=== PATIENT | male | born 1985 | race Caucasian/White ===

== ENCOUNTER 2018-03-13 10:01 | Emergency (ER) | payer SELFPAY ==
[2018-03-13 10:02] VITALS: BP 138/76; PULSE 102; RESP 18; TEMP 36.6; O2SAT 99; BMI 23.3
--- NOTE | 2018-03-13 10:50 | ED.DCSUM_ITS ---
- ER Visit Summary Date of Service: 03/13/18 Chief Complaint: Leg infection History of Present Illness: The patient is a 32 M who presents with pain and redness in both of his legs. He initially noticed some redness to his right foot about 1 week ago. He had noticed some red lines coming up his leg. He took some leftover antibiotics and this seemed to be improving. However over the last 2-3 days he has also developed redness swelling and pain in the left leg extending up to almost the knee. He is not diabetic. He has no systemic symptoms such as fevers nausea or vomiting. He is a former IV drug abuser but denies any use in the last 4 months. Physical Examination: Heart rate 102 vitals otherwise normal Moist mucous membranes Heart regular rhythm Lungs clear Abdomen soft Patient has a small patch of erythema over the lateral right foot there is erythema and soft tissue swelling of the dorsum of the left foot and ankle extending up to several centimeters below the knee he has active full range of motion of the knee ankle and foot without pain this area is hot to the touch he has brisk capillary refill with normal sensation distally, there is no crepitus , this is only minimally tender Test Results: Not indicated Emergency Department Course and Treatment: Patient denies any systemic symptoms he is not febrile. He is otherwise medically healthy. At this time I do not believe laboratory studies are indicated and do believe he is a good candidate for outpatient treatment. However he was given clear instructions of specific signs and symptoms to monitor for and conditions which should prompt return here to the emergency department for reevaluation. He vocalized understanding. He is agreeable to this plan. He was given prescriptions for Keflex and Bactrim and discharged home. Treatment Plan: [] Disposition: Discharge Impression: Bilateral leg cellulitis This note was generated with [employer] dictation software. It may contain incorrect words, spelling, and punctuation that were not noted in review of the chart prior to signing ED Disposition - Plan for ED Patient: Chief Complaint: Cellulitis Referrals: Rebecca Franklin MD [Primary Care Provider] -
--- NOTE | 2018-03-13 10:50 | ED.DEP ---
ED Disposition - Plan for ED Patient: Chief Complaint: Cellulitis Instructions: ED Infec Skin Cellulitis Prescriptions: Cephalexin [Keflex] 500 mg PO Q6 #40 cap Smz/Tmp Ds [Bactrim Ds] 1 tab PO BID #14 tab Referrals: Rebecca Franklin MD [Primary Care Provider] -
== END 2018-03-13 11:39 | disposition home or self-care (01) ==
LOC: ED 11:05
PROVIDERS: Emergency Provider Emergency Medicine
DX: L03.116 Cellulitis of left lower limb (principal); L03.115 Cellulitis of right lower limb; Z72.0 Tobacco use
CPT/HCPCS: 99282

== ENCOUNTER 2019-10-09 03:48 | Emergency (ER) | payer MEDICAID, SELFPAY ==
[2019-10-09 03:49] VITALS: BP 162/102; PULSE 90; RESP 18; TEMP 37; O2SAT 100; BMI 24.4
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
[2019-10-09] MEDS: AMOXICILLIN 500 MG CAPSULE PO (04:00)
[2019-10-09] MEDS: Naproxen 500 MG Tablet PO (04:00)
[2019-10-09 04:09] VITALS: BP 158/91; PULSE 89; RESP 16; O2SAT 96
== END 2019-10-09 04:10 | disposition home or self-care (01) ==
PROVIDERS: Emergency Provider Emergency Medicine
DX: K04.7 Periapical abscess without sinus (principal); F17.200 Nicotine dependence, unspecified, uncomplicated
CPT/HCPCS: 99283

== ENCOUNTER 2022-03-14 19:38 | Emergency (ER) | payer MEDICAID, SELFPAY ==
[2022-03-14 19:39] VITALS: BP 133/86; PULSE 63; RESP 16; TEMP 35.9; O2SAT 100; BMI 25.0
--- NOTE | 2022-03-14 20:32 | ED.RN ---
PT LWBS 2030
== END 2022-03-14 20:30 | disposition left against medical advice (07) ==
LOC: ED 20:32
DX: M54.50 Low back pain, unspecified (principal); Z53.21 Procedure and treatment not carried out due to patient leaving prior to being seen by health care provider

== ENCOUNTER 2022-03-15 13:57 | Emergency (ER) | payer BC, MEDICAID, SELFPAY ==
[2022-03-15 13:57] VITALS: BP 128/88; PULSE 71; RESP 16; TEMP 36.6; O2SAT 99; BMI 25.0
--- NOTE | 2022-03-15 14:17 | EDS_ITS ---
HPI History of Present Illness Chief Complaint: Back Informant: patient Onset/Context/Timing Onset: Days Context: Gradual Onset Injury: lifting, twisting and bending Timing: Intermittent Quality: Sharp Location: Lumbar and Buttock Current Severity: Mild Maximum Severity: Moderate Worsened by: improves with Movement, Bending and Lifting Relieved by: Nothing Associated Symptoms Associated Symptoms: Radiation to Right Leg; Negative for Numbness, Tingling, Radiation to Left Leg, Fever, Abdominal Pain, Dysuria, Unable to Ambulate, Unable to Transfer, Urinary Retention, Urinary Incontinence, Constipation or Fec al Incontinence Narrative Narrative: 36-year-old male no significant past medical or surgical history. Said on Sunday was helping carry and move what that was cut up. He believes he injured his back. In the past he had issue with his sciatic nerve. He has never had any back surgery. He denies any fever. He has had no fall or trauma. No weakness to his legs. No bowel or bladder incontinence or retention. No fever. Prior similar symptoms: Yes Recent Illness/Hospitalization: No PFSH PFSH no medical history Home Medications amoxicillin 500 mg tablet 500 mg PO TID #30 tabs 10/09/19 [Rx Last Taken Unknown] naproxen 500 mg tablet 500 mg PO BID PRN #20 tabs 10/09/19 [Rx Last Taken Unknown] Allergy/AdvReac Type Severity Reaction Status Date / Time No Known Allergies Allergy Verified 03/15/22 13:59 no significant family history no surgical history Social History Smoking Status: Current every day smoker tobacco type: cigarettes ROS ROS ED ROS Narrative Denies any recent illness. Back pain. Review of Systems ROS Unobtainable: Denies due to encephalopathy Constitutional Constitutional ED: Denies chills Eyes Eyes: Denies blurry vision ENT ENT ED: Denies ear pain Cardiovascular Cardiovascular: Denies chest pain Respiratory/Chest Respiratory/Chest: Denies dyspnea Gastrointestinal Gastrointestinal: Denies abdominal pain Genitourinary Genitourinary ED: Denies dysuria Musculoskeletal Musculoskeletal: Reports back pain; Denies arthralgias Integumentary Denies abscess Neurologic Neurologic: Denies headache(s) Psychiatric Psychiatric: Denies anxiety Endocrine Endocrinology: Denies cold intolerance Hematologic/Lymphatic Hematologic/Lymphatic: Denies easy bleeding Allergic/Immunologic Allergic/Immunologic ED: Denies mouth swelling EXAM Physical Exam Narrative Exam Narrative: Similar male no distress vital signs stable afebrile. H EENT exam unremarkable. Neck nontender no lymphadenopathy. Lungs clear to auscultation bilaterally. Heart regular rhythm no murmur. Chest nontender. Abdomen soft nontender. Back cervical, thoracic lumbar spine completely nontender. SI joints are nontender. His right lower back musculature is tender to palpation consistent with muscle strain. There is no deficit. No bruising. He has normal motor strength both upper and lower extremities. No cauda equina. No saddle esthesia. He is able to raise up on his toes. Neurologic exam is normal. Const Vital Signs: 03/15/22 13:57 Temperature 97.8 F Temperature Source Temporal Pulse Rate 71 Respiratory Rate 16 Blood Pressure 128/88 H Blood Pressure Mean 101 Pulse Ox 99 Oxygen Delivery Method Room Air Positive well nourished and well developed; Negative for obese, cachectic, contractures or unkempt General Appearance ED: well developed; Negative for unkempt, cachectic or contractures Nutritional Appearance: Negative for cachectic or obese HEENT Reports moist mucous membranes; Denies dry mucous membranes Negative for trauma Mouth ED: No dry mucous membranes Mouth: No dry mucous membranes Eyes PERRL and EOMs intact bilaterally General Eye ED: Yes pale conjunctiva and scleral icterus Neck no lymphadenopathy, supple and no JVD General: Negative for tenderness Thyroid: Negative for other Resp normal respiratory effort and clear to auscultation bilaterally Effort and Inspection: Negative for pain with movement Auscultation: Negative for rales or rhonchi Percussion: Negative for other Cardio regular rate, regular rhythm, S1 normal heart sound, S2 normal heart sound and no murmurs Palpation: Negative for palpable S3 Rate: Negative for bradycardia Rhythm: Negative for abnormal rhythm Bruits: Negative for other GI normal to inspection, nondistended, normoactive bowel sounds, soft to palpation, non-tender, non-distended and no masses Inspection: Negative for abdominal distention Auscultation: Negative for hyperactive bowel sounds Palpation: Negative for tender, guarding or rebound tenderness present Back/Spine normal to inspection; Negative for no thoracic nor lumbar tenderness Back/Spine Narrative: Tender right lower musculature consistent with a myofascial strain. No deficit. Bruising. Cervical Spine: Negative for cervical spine tenderness Thoracic Spine / Upper Back: Negative for paraspinal muscle tenderness Lumbar Spine / Lower Back: straight leg raise negative bilaterally; Negative for ROM limited, straight leg raise positive right or straight leg raise positive - left Extremity normal to inspection and no clubbing, cyanosis or edema General Extremety ED: Negative for edema General Extremity: Negative for edema Neuro oriented x3 and no sensory deficits noted Sensorium / Orientation: alert; Negative for confused, lethargic or stuporous Sensory Exam: No other Motor Exam: strength 5/5 throughout Psych mental status grossly normal Appearance: Negative for unkempt Attitude: No agitated Mood & Affect: Negative for depressed Skin no rashes or lesions noted General Skin Exam: Negative for jaundice Lesions: No lesion noted Rashes: No rashes noted Trauma: Negative for abrasion Wounds: Negative for wounds noted MDM MDM MDM Narrative Medical decision making narrative: Patient with lumbar strain secondary to lifting. He needs no imaging. He had good strength and sensation both lower extremities. No significant signs of a radiculopathy. Motrin and Tylenol for pain. Ice, heat and massage. Discharge Plan Triage Chief Complaint: Back ED Provider: Giuseppe Payne Dx/Rx/DC Orders Clinical Impression: Low back strain Instructions: ED Back Pain (Acute or Chronic), ED Back Sprain/Strain Prescriptions: No Action amoxicillin 500 MG tablet 500 mg PO TID Qty: 30 0RF naproxen 500 MG tablet 500 mg PO BID PRN Qty: 20 0RF Primary Care Provider: Care Physician,No Primary Referrals: Giuseppe Payne MD [Emergency Provider] - 10-14 Days if not better Care Physician,No Primary [Primary Care Provider] - Activity Restrictions/Additional Instructions: You have a strain in the muscle of your lower back. Ice to decrease inflammation. Hot shower, warm bath and massage to relax the muscle. Motrin for pain and inflammation. Tylenol for pain. This should progressively improve if not follow-up with your primary care physician. Disposition Disposition: Home, Self Care
== END 2022-03-15 14:25 | disposition home or self-care (01) ==
LOC: ED 14:20
PROVIDERS: Emergency Provider Emergency Medicine; Visit Provider Emergency Medicine
DX: S39.012A Strain of muscle, fascia and tendon of lower back, initial encounter (principal); X50.0XXA Overexertion from strenuous movement or load, initial encounter; F17.210 Nicotine dependence, cigarettes, uncomplicated
CPT/HCPCS: 99282

== ENCOUNTER 2023-01-09 06:11 | Emergency (ER) | payer SELFPAY ==
[2023-01-09 06:12] VITALS: BP 109/67; PULSE 89; RESP 18; TEMP 36.6; O2SAT 97; BMI 23.8
[2023-01-09] MEDS: Ketorolac 30 MG/ML Syringe IM (06:45)
[2023-01-09] MEDS: Orphenadrine 60 MG/2 ML Ampul IM (06:45)
--- NOTE | 2023-01-09 06:48 | EX.ED.DYSGE1 ---
HPI History of Present Illness Chief Complaint: Back Narrative Narrative: Patient is a 37-year-old male with no reported significant past medical history. He states that yesterday evening he bent down to pick a tag off the floor and as he stood back up developed pain in his left-sided low back. He states he tried to sleep but had difficulty doing so secondary to pain in his seem worse this morning as he was trying to get out of bed. He denies any loss of bowel or bladder control or IV drug use but states that secondary to the pain he does not believe he could do his job and therefore comes in for evaluation. PFSH PFSH Home Medications hydrocodone-acetaminophen 5-325mg 5mg-325mg 1 tab PO Q6H PRN PRN Pain 3 days #12 TABLETS 01/09/23 [Rx Last Taken Unknown] methocarbamol 500 mg tablet 1,000 mg PO 4X/DAY PRN PRN Muscle pain/spasm #56 tabs 01/09/23 [Rx Last Taken Unknown] Allergy/AdvReac Type Severity Reaction Status Date / Time No Known Allergies Allergy Verified 04/04/22 15:18 Family History Mother Heart disease Surgical History (Updated 04/04/22 @ 15:[address] Ashley Perez MD) No pertinent past surgical history Social History (Updated 04/04/22 @ 15:[address] Ashley Perez MD) household members: none current occupational status: employed current occupation: [employer] Smoking Status: Current every day smoker tobacco type: cigarettes Tobacco: How many years used: 19 Electronic Cigarette Use: not used alcohol intake: never substance use type: does not use what type of physical activity do you participate in: weight training do you feel safe at home: Yes ROS ROS ED Constitutional Constitutional ED: Denies chills or fever(s) ENT ENT ED: Denies sore throat Cardiovascular Cardiovascular: Denies chest pain Respiratory/Chest Respiratory/Chest: Denies cough or dyspnea Gastrointestinal Gastrointestinal: Denies abdominal pain, diarrhea, nausea or vomiting Genitourinary Genitourinary ED: Denies dysuria or hematuria Musculoskeletal Musculoskeletal: Reports back pain Integumentary Denies rash Neurologic Neurologic: Denies headache(s) or paresthesias Hematologic/Lymphatic Hematologic/Lymphatic: Denies easy bleeding or easy bruising EXAM Physical Exam Const Vital Signs: 01/09/23 06:12 Temperature 97.8 F Temperature Source Temporal Pulse Rate 89 Respiratory Rate 18 Blood Pressure 109/67 Blood Pressure Mean 81 Pulse Ox 97 Oxygen Delivery Method Room Air Positive well nourished and well developed General Appearance ED: well developed Eyes PERRL and EOMs intact bilaterally Neck supple Resp normal respiratory effort and clear to auscultation bilaterally Cardio regular rate and regular rhythm Rate: other Other Details: Radial pulses are plus 2 out of 4 bilaterally are equal and symmetric Back/Spine Back/Spine Narrative: No bony deformity or step-off of the thoracic or lumbar spine no midline pain with palpation. There is left paralumbar tension and spasm noted that worsens with extension and rotation. No saddle anesthesia. Negative straight leg raise. No clonus or Babinski. Patellar reflexes are plus 2 out of 4 bilaterally Extremity normal to inspection Neuro oriented x3, CN's II-XII intact bilaterally and no sensory deficits noted Sensorium / Orientation: alert Psych mental status grossly normal Skin no rashes or lesions noted Skin Narrative: No overlying soft tissue changes to suggest trauma or infection MDM MDM MDM Narrative Medical decision making narrative: Patient presented to the ER with stable vitals. He denied any recent trauma or excessive activity. He reported the pain began with simply standing from a bent over position. Differential diagnosis includes lumbosacral strain versus cauda equina or epidural abscess or kidney stone or pyelonephritis. Patient does not have flank pain he does not have dysuria or hematuria so therefore concern for kidney stone or pyelonephritis is low. He denies any risk factors for red flag symptoms of cauda equina or epidural abscess and therefore I do not feel these are likely either. Patient's symptoms are most consistent with lumbosacral strain therefore he was treated with Toradol and Norflex and he will be discharged home with symptomatic care. History & Record Review Discussion w/independent historian: Patient Discharge Plan Triage Chief Complaint: Back ED Provider: Lex Sloan Dx/Rx/DC Orders Clinical Impression: Acute lumbosacral myofascial strain Instructions: ED Back Spasm, No Trauma, ED Back Sprain/Strain Prescriptions: New hydrocodone-acetaminophen 5-325 mg tablet 1 tab PO Q6H PRN PRN (Reason: Pain) 3 Days Qty: 12 0RF methocarbamol 500 mg tablet 1,000 mg PO 4X/DAY PRN PRN (Reason: Muscle pain/spasm) Qty: 56 0RF Primary Care Provider: Ashley Perez Referrals: Ashley Perez MD [Primary Care Provider] - Activity Restrictions/Additional Instructions: Please continue to stretch and heat your low back to help reduce pain and speed healing and return to the ER should you have any further concerns Disposition Disposition: Home, Self Care
== END 2023-01-09 06:54 | disposition home or self-care (01) ==
PROVIDERS: Emergency Provider Emergency Medicine; PCP Internal Medicine; Visit Provider Emergency Medicine
DX: S39.012A Strain of muscle, fascia and tendon of lower back, initial encounter (principal); F17.210 Nicotine dependence, cigarettes, uncomplicated; X50.1XXA Overexertion from prolonged static or awkward postures, initial encounter
CPT/HCPCS: 96372; 99282

== ENCOUNTER 2024-09-12 18:59 | Emergency (ER) | payer SELFPAY ==
[2024-09-12 19:00] VITALS: BP 128/68; PULSE 96; RESP 16; TEMP 37.1; O2SAT 100; BMI 22.4
--- NOTE | 2024-09-12 19:34 | EX.ED.DYSGE1 ---
HPI History of Present Illness Chief Complaint: Cold Sx Informant: patient Onset/Context/Timing Onset: Days (5) Context: Gradual Onset Timing: Continuous Quality: Aching Location: Generalized Worsened by: Nothing Relieved by: Nasal spray Narrative Narrative: Patient presents with cough and flulike symptoms that have been getting worse over the last 5 days. Patient states it is gradually getting worse. Patient admits to some generalized aching. Patient also states he has some sharp pain in his chest. Patient states he has been using [id number] medications. Patient states that the nasal spray has been helping. Patient states cough medicine has not been helping. Patient admits to some sinus pressure and headache. Patient admits to some nausea but denies any vomiting. Patient admits to some diarrhea. Patient states he is coughing up some brown sputum. PFSH PFS Home Medications ?Medication ?Instructions ?Recorded ?Last Taken ?Type NK 09/12/24 Unknown History Allergy/AdvReac Type Severity Reaction Status Date / Time No Known Allergies Allergy Verified 09/12/24 19:00 Family History Mother Heart disease Surgical History No pertinent past surgical history Social History household members: none current occupational status: employed current occupation: [employer] Smoking Status: Current every day smoker tobacco type: cigarettes Tobacco: How many years used: 19 Electronic Cigarette Use: not used alcohol intake: never substance use type: does not use what type of physical activity do you participate in: weight training do you feel safe at home: Yes ROS ROS ED Constitutional Constitutional ED: Reports fever(s) and subjective; Denies chills Eyes Eyes: Denies blurry vision or change in vision ENT ENT ED: Reports rhinorrhea and sore throat Cardiovascular Cardiovascular: Reports chest pain; Denies palpitations Respiratory/Chest Respiratory/Chest: Reports cough and dyspnea Gastrointestinal Gastrointestinal: Reports diarrhea and nausea; Denies vomiting Genitourinary Genitourinary ED: Denies dysuria or hematuria Musculoskeletal Musculoskeletal: Reports back pain and myalgias; Denies neck pain Integumentary Denies abscess or rash Neurologic Neurologic: Reports headache(s); Denies weakness Allergic/Immunologic Allergic/Immunologic ED: Denies mouth swelling or urticaria EXAM Physical Exam Const Vital Signs: 09/12/24 19:00 09/12/24 19:19 Temperature 98.7 F Temperature Source Temporal Pulse Rate 96 Respiratory Rate 16 Respiratory Effort Normal Non-Labored Respiratory Pattern Normal Blood Pressure 128/68 H Blood Pressure Mean 88 Pulse Ox 100 Oxygen Delivery Method Room Air Positive well nourished and well developed General Appearance ED: well developed and NAD HEENT Reports moist mucous membranes Neck supple and no JVD Resp normal respiratory effort and clear to auscultation bilaterally Cardio regular rate and regular rhythm GI non-tender and non-distended Palpation: soft Extremity General Extremety ED: Negative for edema or tenderness General Extremity: Negative for edema Neuro oriented x3, CN's II-XII intact bilaterally and no sensory deficits noted Sensorium / Orientation: alert Motor Exam: strength 5/5 throughout Psych mental status grossly normal MDM MDM MDM Narrative Medical decision making narrative: Differential diagnosis includes pneumonia, bronchitis, and viral illness. Chest x-ray will be obtained to assess for pneumonia and bronchitis. COVID-19, influenza, and RSV PCR will be obtained to assess for viral illness. Lab Data Lab results narrative: COVID-19 PCR was reviewed and was negative. Influenza PCR was reviewed and was positive for influenza A and negative for influenza B. RSV PCR was reviewed and was negative. Radiography Chest X-Ray - ED: 2 View, Read by ED Physician, Read by Radiologist, Normal and No Acute Disease Diagnostic Testing: Clinical Impression(s) from Imaging Studies Chest X-Ray 09/12/24 19:55 IMPRESSION: No radiographic evidence of acute cardiopulmonary disease Reading Location: [facility] and lateral chest x-ray was obtained. There are 2 views. On my independent interpretation, lung navarrete are clear. There is normal cardiac silhouette. Bony thorax is normal. There is no acute process noted. Radiologist also interpreted the x-ray and agrees. Treatment and Re-Evaluation :: Smoking cessation was discussed. The patient was advised of his findings. Patient is outside of the window for Tamiflu. Patient was instructed to drink plenty of fluids. Patient was instructed to take Tylenol and ibuprofen as needed for any aches or fevers. Patient was given a note for work. Patient was instructed to return if worse in any way. Patient understood and was agreeable with the plan. All questions were answered. Discharge Plan Triage Chief Complaint: Cold Sx ED Provider: Levon Guzman Dx/Rx/DC Orders Clinical Impression: Influenza A, Smoker Instructions: ED Influenza (Adult) Prescriptions: No Action NK Stand Alone Forms: ED Work / School Excuse Primary Care Provider: Ashley Perez Referrals: Ashley Perez MD [Primary Care Provider] - 5-7 Days Print Language: Czech Disposition Disposition: Home, Self Care
--- NOTE | 2024-09-12 19:55 | RAD_ITS ---
PROCEDURE: CHEST PA AND LATERAL REASON FOR EXAM: Cough TECHNIQUE: Frontal and lateral views of the chest. COMPARISON: None. FINDINGS: The heart size is normal. The mediastinal contour is unremarkable. The lungs are clear. The bones are unremarkable. RAD/Chest PA and Lateral IMPRESSION: No radiographic evidence of acute cardiopulmonary disease Reading Location: [facility]
[2024-09-12 21:32] VITALS: BP 127/63; PULSE 114; RESP 20; TEMP 37.4; O2SAT 98
== END 2024-09-12 21:33 | disposition home or self-care (01) ==
PROVIDERS: Emergency Provider Emergency Medicine; PCP Internal Medicine; Visit Provider Emergency Medicine
DX: J10.1 Influenza due to other identified influenza virus with other respiratory manifestations (principal); R19.7 Diarrhea, unspecified; R11.0 Nausea; F17.210 Nicotine dependence, cigarettes, uncomplicated
CPT/HCPCS: 71046; 87631; 99282

== ENCOUNTER 2024-12-18 00:21 | Emergency (ER) | payer SELFPAY ==
[2024-12-18 00:22] VITALS: BP 145/70; PULSE 100; RESP 15; TEMP 36.4; O2SAT 97; BMI 23.2
[2024-12-18 00:25] VITALS: BP 145/70; PULSE 100; RESP 15; TEMP 36.4; O2SAT 98
--- NOTE | 2024-12-18 00:27 | EDS_ITS ---
HPI History of Present Illness Chief Complaint: Bite Informant: patient Narrative Narrative: 39-year-old healthy male presents 2 days after dog bite to his left hand and forearm. It is his friend's dog, dog is playful and he was roughhousing with the patient, thought he was protecting children in the house and bit the patient's arm and hand. This is for semis presented for medical care, as his left hand is swollen and red and painful especially at the thumb. He can move it. Denies any numbness or tingling. No fevers or chills or systemic symptoms. The forearm wounds are now bothering him. [id number]. Tetanus Immunization: <5 years PFSH PFSH Medical History no medical history no medical history Home Medications ?Medication ?Instructions ?Recorded ?Last Taken ?Type amoxicillin 875 mg-potassium 875 mg PO Q12H #20 TABLET S 12/18/24 Unknown Rx clavulanate 125 mg tablet Allergy/AdvReac Type Severity Reaction Status Date / Time No Known Allergies Allergy Verified 12/18/24 00:26 Family History Mother Heart disease Surgical History No pertinent past surgical history Social History household members: none current occupational status: employed current occupation: [employer] Smoking Status: Current every day smoker tobacco type: cigarettes Tobacco: How many years used: 19 Electronic Cigarette Use: not used alcohol intake: never substance use type: does not use what type of physical activity do you participate in: weight training do you feel safe at home: Yes ROS ROS ED Constitutional Constitutional ED: Denies chills, fever(s) or sweats Respiratory/Chest Respiratory/Chest: Denies dyspnea Gastrointestinal Gastrointestinal: Denies nausea or vomiting Musculoskeletal Musculoskeletal: Reports extremity pain; Denies neck pain Integumentary Reports rash and wounds; Denies Abrasions Neurologic Neurologic: Denies headache(s), paresthesias or weakness EXAM Physical Exam Const Vital Signs: 12/18/24 00:22 12/18/24 00:25 12/18/24 00:26 Temperature 97.5 F L 97.5 F L Temperature Source Oral Oral Pulse Rate 100 100 Respiratory Rate 15 15 Blood Pressure 145/70 H 145/70 H Blood Pressure Mean 95 95 Pulse Ox 97 98 Oxygen Delivery Method Room Air Room Air Room Air Positive well nourished and well developed Constitutional Narrative: Well-appearing in no distress General Appearance ED: well developed and NAD Eyes PERRL and EOMs intact bilaterally Neck full ROM and supple Back/Spine normal ROM and normal to inspection Extremity Extremity Narrative: Multiple scabbed wounds on the left forearm and the left hand. On the hand, it is on the dorsum of the first metacarpal area where the majority of the tenderness and induration is, along with surrounding cellulitis that spreads throughout the dorsum of the hand although there is no tenderness throughout the dorsum elsewhere. There is also shallow wound at the thenar eminence. These areas are swollen, but he can move the thumb around in all directions. The forearm does not appear to have any erythema or tenderness. There is no epitrochlear or axillary lymphadenopathy/tenderness. Neuro oriented x3, no focal motor deficits and no sensory deficits noted Sensorium / Orientation: alert Psych mental status grossly normal and thought process normal Skin Skin Narrative: Several small puncture wounds in the forearm in the left hand see above. Cellulitis in the left hand but not forearm. Move all fingers. No lymphangitis. No expressible discharge from any of the wounds or bleeding. Rashes: no rashes MDM MDM MDM Narrative Medical decision making narrative: This appears to be infection in the hand. I am giving him a dose of IV Unasyn and sending a CBC, then we will give him a wrist splint and send him home with a prescription for Augmentin and refer to plastics/hand for follow-up. There does not appear to be any abscess, I do not know that it will do any good to core this open right now or try to drain anything. He does not have a leukocytosis, his vital signs are normal and clinically he is not septic so I do not think he needs any more workup or admission. Advised to follow-up or return if getting worse or having symptoms of an abscess which we discussed. Lab Data Attestation: I reviewed the patient's lab results. Labs: Laboratory Results - last 24 hr 12/18/24 00:46 WBC 5.5 RBC 4.26 L Hgb 12.2 L Hct 34.8 L MCV 81.7 MCH 28.6 MCHC 35.1 RDW Std Deviation 37.6 RDW Coeff of Julianne 12.6 Plt Count 158 MPV 9.0 Immature Gran % (Auto) 0.200 Neut % (Auto) 58.9 Lymph % (Auto) 23.6 [facility] % (Auto) 12.6 H Eos % (Auto) 4.2 Baso % (Auto) 0.5 Absolute Neuts (auto) 3.3 Absolute Lymphs (auto) 1.31 Nucleated RBC % 0 Discharge Plan Triage Chief Complaint: Bite ED Provider: Carlos Joiner Dx/Rx/DC Orders Clinical Impression: Dog bite of left hand with infection Instructions: ED Dog Bite Prescriptions: New amoxicillin-pot clavulanate 875-125 mg tablet 875 mg PO Q12H Qty: 20 0RF Primary Care Provider: Ashley Perez Referrals: Juan Pablo Morrison MD [Med Staff - Active Staff] - As soon as possible Print Language: Upper Sorbian Disposition Disposition: Home, Self Care
[2024-12-18 00:56] LABS: Absolute Lymphocyte Count 1.31 X10^3/uL (0.83-4.51); Absolute Neutrophil Count 3.3 X10^3/uL (2.0-7.7); Basophil# 0.03 X10^3/uL; Basophil% 0.5 % (0-1); Eosinophil# 0.23 X10^3/uL; Eosinophils% 4.2 % (0-5); Hematocrit 34.8 % (40-54); Hemoglobin 12.2 g/dL (13.0-16.5); Lymphocyte # 1.31 X10^3/ul (0.83-4.51); Lymphocyte % 23.6 % (19-41); Mean Corp Hgb Conc 35.1 g/dL (32-36); Mean Corpuscular Hgb 28.6 pg (27.0-32.0); Mean Corpuscular Volume 81.7 fL (80-94); Monocyte% 12.6 % (0-10); NRBC Flagged by Analyzer 0 % (0-5); Neutrophil # 3.26 X10^3/uL (2.7-7.7); Neutrophil % 58.9 % (47-70); Platelet Count 158 K/mm3 (150-450); RBC Distribution Width CV 12.6 % (11.6-14.6); RBC Distribution Width SD 37.6 fl (35.1-43.9); Red Blood Count 4.26 M/mm3 (4.6-6.2); White Blood Count 5.5 K/mm3 (4.4-11.0)
[2024-12-18] MEDS: Ampicillin/Sulbactam 3 GM in 0.9% Normal Saline (100mL MB+) 100 ML IV (01:12)
[2024-12-18] MEDS: Ketorolac 30 MG/ML Syringe IV (01:12)
== END 2024-12-18 02:10 | disposition home or self-care (01) ==
LOC: ED 00:37
PROVIDERS: Emergency Provider Emergency Medicine; PCP Internal Medicine; Visit Provider Emergency Medicine
DX: L03.114 Cellulitis of left upper limb (principal); S61.432A Puncture wound without foreign body of left hand, initial encounter; S51.832A Puncture wound without foreign body of left forearm, initial encounter; W54.0XXA Bitten by dog, initial encounter; F17.210 Nicotine dependence, cigarettes, uncomplicated
CPT/HCPCS: 85025; 96365; 96375; 99283; A4216; J0295